=== PATIENT | male | born 1985 | race Hispanic/Latino ===

== ENCOUNTER 2025-02-23 19:31 | Emergency (ER) | payer OTHER ==
[2025-02-23] MEDS ORDERED: KETAMINE 100 MG/ML (5ML VIAL) ONE (20:24)
[2025-02-23] MEDS ORDERED: Lidocaine 1% w/Epinephrine 1:200K 30 ML VIAL ONE (20:24)
[2025-02-23] MEDS ORDERED: Ondansetron PF 4 MG/2 ML Vial ONE (20:28)
[2025-02-23 20:29] LABS: #Basophils 0.08 10x3/uL (0.0-0.2); #Eosinophils Less than 0.03 10x3/uL (0.0-0.5); #Monocytes 0.94 10x3/uL (0.0-1.1); #Neutrophils 13.55 10x3/uL (1.5-8.4); %Basophils 0.5 % (0.0-2.0); %Eosinophils 0.1 % (0.0-6.0); %Lymphocytes 9.5 % (18.0-47.0); %Monocytes 5.8 % (0.0-10.0); %Neutrophils 83.7 % (40.0-75.0); Hematocrit 41.1 % (38.8-50.0); Hemoglobin 14.3 g/dL (13.5-17.5); Mean Corpuscular Hemoglobin 29.1 pg (27.0-33.0); Mean Corpuscular Volume 83.5 fL (81.2-95.1); Platelet Count 361 10x3/uL (150-450); Red Blood Cell (RBC) Count 4.92 10x6/uL (4.32-5.72); White Blood Cell (WBC) Count 16.18 10x3/uL (3.5-10.5)
[2025-02-23 20:45] LABS: ALT (SGPT) 23 U/L (Less than 45); AST (SGOT) 42 U/L (11-34); Albumin 4.8 g/dL (3.1-4.5); Alkaline Phosphatase 59 U/L (40-110); Anion Gap 20 mmol/L (10-20); BUN (Urea Nitrogen) 19 mg/dL (8.9-20.6); Bilirubin, Total 1.4 mg/dL (0.3-1.2); Calc. Creatinine Clearance 0 mL/min (70-130); Calcium 9.7 mg/dL (7.8-10.44); Carbon Dioxide 23 mmol/L (22-29); Chloride 102 mmol/L (98-107); Globulin 3.4 g/dL (2.4-3.5); Glucose 115 mg/dL (70-105); Potassium 4.3 mmol/L (3.5-5.1); Sodium 141 mmol/L (136-145)
[2025-02-23] MEDS ORDERED: CEFAZOLIN 1 GM VIAL ONE (21:08)
[2025-02-23] MEDS ORDERED: CEFAZOLIN 2 GM VIAL ONE (21:08)
[2025-02-23 21:37] LABS: INR-International Normal Ratio 1.1; Prothrombin Time 11.9 sec (9.5-12.1)
== END 2025-02-23 23:02 ==
LOC: CSHERS 19:31
DX: S22.32XA Fracture of one rib, left side, initial encounter for closed fracture (principal); J93.0 Spontaneous tension pneumothorax; W01.0XXA Fall on same level from slipping, tripping and stumbling without subsequent striking against object, initial encounter; Y92.149 Unspecified place in prison as the place of occurrence of the external cause
CPT/HCPCS: 32554; 71045; 80053; 85025; 85610; 86850; 86900; 86901; 93005; 94760; 96365; 96375; 99152; 99153; J0690; J2060; J2405